=== PATIENT | female | born 1960 | race Caucasian/White ===

== ENCOUNTER 2023-04-25 22:02 | Outpatient (REF) | payer BC, SELFPAY ==
[2023-04-30 12:10] LABS: Age Gdln ACOG Testing Note (.); HPV Aptima Negative (Negative); IGP, Aptima HPV, rfx 16/18,45 Note (.)
== END 2023-04-25 22:03 | disposition home or self-care (01) ==
LOC: LAB 22:02
PROVIDERS: Visit Provider Obstetrics & Gynecology
DX: Z12.4 Encounter for screening for malignant neoplasm of cervix (principal)
CPT/HCPCS: 87624; G0145

== ENCOUNTER 2024-05-05 20:56 | Outpatient (REF) | payer SELFPAY ==
[2024-05-08 19:11] LABS: Age Gdln ACOG Testing Note (.); HPV Aptima Negative (Negative); IGP, Aptima HPV, rfx 16/18,45 Note (.)
== END 2024-05-05 20:57 | disposition home or self-care (01) ==
LOC: LAB 20:56
PROVIDERS: Visit Provider Obstetrics & Gynecology
DX: Z01.419 Encounter for gynecological examination (general) (routine) without abnormal findings (principal)
CPT/HCPCS: 87624; 88175